=== PATIENT | female | born 2000 | race Caucasian/White ===

== ENCOUNTER 2019-08-16 12:21 | Emergency (ER) | payer OTHER ==
[~2019-08-16] VITALS: Ht 160 cm; Wt 60.0 kg
[2019-08-16] MEDS ORDERED: SERT50TA28 PO (12:37)
--- NOTE | 2019-08-16 12:37 | NUR ---
BIB BY POLICE AFTER RELATIONAL DISPUTE LEAD TO PATIENT ATTEMPTING TO HANG HERSELF WITH BELT AND PHONE CORD HX OF SI WITHOUT ATTEMPT 9 YEAR OLD ON [employer] POLICE FILED LEGAL 1999 NO TRAUMA NOTED. VOICE/BREATHING UNREMARKABLE
[2019-08-16 12:51] VITALS: BP 112/65
--- NOTE | 2019-08-16 12:51 | NUR ---
MOP MAN AT BEDSIDE FOR EXAM. PT TEARFUL IN DICUSSING EVENTS.
--- NOTE | 2019-08-16 12:51 | NUR ---
MD AT BEDSIDE FOR EXAM, PLAN TO CONSULT OPERATIONAL REVIEW SERGEANT.
--- NOTE | 2019-08-16 13:16 | NUR ---
FAMILY ASSISTANT AT BEDSIDE, SOCIAL WORK AT BEDSIDE. PLAN TO DE-CERTIFY LEGAL HOLD AND D/C PT WITH OUTPATIENT FOLLOW UP.
--- NOTE | 2019-08-16 13:51 | NUR ---
Patient/Caregiver given discharge instructions and they have confirmed that they understand the instructions. Patient ambulatory with steady gait.
== END 2019-08-16 14:14 | disposition home or self-care (01) ==
LOC: ED 13:20
DX: F33.9 Major depressive disorder, recurrent, unspecified (principal); R45.851 Suicidal ideations
CPT/HCPCS: 99283